=== PATIENT | male | born 1945 | race Caucasian/White ===

== ENCOUNTER 2020-09-05 13:51 | Inpatient (IN) ==
[2020-09-05] MEDS ORDERED: DILTIAZEM 25 MG/5 ML VIAL IV ONE (14:01)
--- NOTE | 2020-09-05 14:06 | Emergency Department Note ---
Arrhythmia/Palpitations HPI General Chief Complaint: Arrhythmia/Palpitations Stated Complaint: Shortness of breath Time Seen by Provider: 09/05/20 14:01 Source: patient, family and RN notes reviewed Mode of arrival: wheelchair Limitations: no limitations History of Present Illness HPI Narrative: Narrative: This patient presents with a tachycardia syndrome that he has been aware for the last 2 hours. He has a history of atrial flutter in the past. Also has had an ablation procedure in the past. He has very mild chest discomfort and slight shortness of breath associated with the tachycardia. No recent cough fever chills or other symptoms. MD Complaint: rapid heart beat Onset (ago): hour(s) Duration: constant Context: occurred during rest Arrhythmia History: other (Atrial flutter) Associated symptoms: Reports chest pain and shortness of breath Related Data Home Medications Medication Instructions Recorded Confirmed No Known Home Meds 09/05/20 09/05/20 Allergies Allergy/AdvReac Type Severity Reaction Status Date / Time Wjqtqhe-Pbu-Adh Reductase AdvReac Intermediate myalgia Verified 07/12/19 13:51 Inhibitor diltiazem AdvReac Unknown Rash Verified 07/12/19 13:51 cottonwood Pollen Allergy Unknown Unknown Uncoded 07/12/19 13:51 Review of Systems ROS ROS Narrative: Narrative: All systems ED: reviewed and negative except as stated. [facility] Narrative Patient History Narrative: Narrative: Medical/Surgical/Family History All Active Problems (Updated 09/05/20 @ 16:26 by Kody Ceballos MD) Congestive heart failure (Acute) Atrial flutter with rapid ventricular response (Chronic) Hypertension, essential, benign (Chronic) Hypertension in stage 3 chronic kidney disease due to type 2 diabetes mellitus (Chronic) CKD (chronic kidney disease) stage 3, GFR 30-59 ml/min (Chronic) Chest pressure (Acute) Type 2 diabetes mellitus with peripheral vascular disease (Chronic) Knee pain (Chronic) Elevated blood sugar (Chronic) Multiple lacunar infarcts (Chronic) Hypercholesterolemia (Chronic) DM w/o complication type II (Chronic) Sleepiness (Chronic) Back pain (Chronic) Arrhythmia (Chronic) Medical History (Updated 09/05/20 @ 16:26 by Kody Ceballos MD) Accident (Resolved) 1964* Patient broke bones in accident Arrhythmia (Chronic) 1964 Back pain (Chronic) CKD (chronic kidney disease) stage 3, GFR 30-59 ml/min (Chronic) 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) DM w/o complication type II (Chronic) 1998 Elevated blood sugar (Chronic) Fatigue (Resolved) 2012 Fracture (Resolved) 1965 Hypercholesterolemia (Chronic) Hypertension in stage 3 chronic kidney disease due to type 2 diabetes mellitus (Chronic) Indigestion (Resolved) Knee pain (Chronic) 2010 Multiple lacunar infarcts (Chronic) Muscle pain (Resolved) 2013 Shortness of breath (Resolved) 2013 Sleepiness (Chronic) daytime sleepiness Surgical History History of appendectomy (Resolved) 1953 History of left cataract extraction (Resolved 06/05/15) History of right cataract extraction (Resolved 06/26/15) Status post repair of ligament of ankle (Resolved) 1956 Broken ankle Family History Brother Diabetes mellitus Essential hypertension Father Diabetes mellitus Family history of malignant neoplasm Family history of arthritis Essential hypertension Acute myocardial infarction Mother Family history of malignant neoplasm Uncle Family history of malignant neoplasm Social History Smoking Status: Current every day smoker Alcohol Intake Frequency: a few times a week Substance Use: does not use Exam Narrative Narrative: Narrative: General Limitations: no limitations Head Head: Present atraumatic, normocephalic and normal inspection Eye Eye: Present normal appearance and EOMI; Absent scleral icterus and conjunctival injection ENT ENT: Present normal exam, normal oropharynx and mucous membranes moist Neck Neck: Present normal inspection and full ROM Chest Chest: Present normal inspection and symmetric chest wall rise Respiratory Respiratory: Present normal lung sounds bilaterally Cardiovascular Cardiovascular: Present regular rate and normal heart sounds Adbominal Abdominal: Present soft; Absent distention and tenderness Extremities Extremities: Present normal inspection and full ROM; Absent pedal edema and pretibial edema Neurological Neurological: Present alert Psychiatric Psychiatric: Present normal affect Skin Skin: Present warm (WNL) and dry; Absent diaphoresis Course Vital Signs Vital signs: Vital Signs Temperature 98.9 F 09/05/20 13:53 Pulse Rate 187 H 09/05/20 13:53 Respiratory Rate 18 09/05/20 13:53 Blood Pressure 111/88 09/05/20 13:53 Pulse Oximetry (%) 96 09/05/20 13:53 Temperature 98.9 F 10/22/20 13:53 Pulse Rate 106 H 09/05/20 16:22 Respiratory Rate 28 H 09/05/20 16:22 Blood Pressure 160/135 09/05/20 16:22 Pulse Oximetry (%) 93 09/05/20 16:22 MDM MDM Narrative Medical decision making narrative: Narrative: Patient was given initially 6 mg of adenosine and converted to sinus rhythm just for a few beats and then converted back into SVT. He then was given 12 mg of adenosine and converted to sinus rhythm for a slightly longer period but then converted back. He was started on diltiazem and his heart rate did come down to 113. I discussed case with Dr. Olmos and he will be admitted to the hospital for atrial flutter RVR with congestive heart failure Lab Data Lab results reviewed: Yes I reviewed the patient's lab results. Lab results narrative: BNP was over 6000. Result diagrams: 09/05/20 14:04 09/05/20 14:04 Labs: Lab Results 09/05/20 09/05/20 09/05/20 Range/Units 14:04 14:04 14:04 WBC 11.0 (4.5-11.0) K/mcL RBC 4.49 L (4.50-5.90) M/mcL Hgb 13.9 (13.5-16.5) g/dL Hct 41.5 (41.0-55.0) % MCV 92.4 (80.0-100.0) fL MCH 31.0 (26.0-34.0) pg MCHC 33.5 (31.0-36.0) g/dL RDW 13.2 (11.5-14.5) % Plt Count 337 (140-440) K/mcL MPV 10.0 (7.4-10.4) fL Neut % (Auto) 66.7 (38.0-78.0) % Lymph % (Auto) 20.7 (15.0-49.0) % [place] % (Auto) 9.4 (1.0-12.0) % Eos % (Auto) 2.3 (0.0-7.0) % Baso % (Auto) 0.9 (0.0-2.0) % Lymph # (Auto) 2.28 (1.50-4.80) K/mcL [place] # (Auto) 1.03 H (0.10-0.90) K/mcL Eos # (Auto) 0.25 (0.00-0.70) K/mcL Baso # (Auto) 0.10 (0.00-0.20) K/mcL Absolute Neutrophils 7.35 (1.80-8.00) K/mcL Sodium 137 (133-145) mmol/L Potassium 3.6 (3.3-5.1) mmol/L Chloride 101 (96-108) mmol/L Carbon Dioxide 20 L (22-30) mmol/L Anion Gap 16.0 (8.0-16.0) BUN 27 H (8-23) mg/dL Creatinine 1.9 H (0.7-1.2) mg/dL GFR Calculation 34 Glucose 250 H (70-105) mg/dL Calcium 9.7 (8.6-10.4) mg/dL Total Bilirubin 0.6 (0.1-1.0) mg/dL AST 13 (<40) U/L ALT 11 (<40) U/L Alkaline Phosphatase 61 (39-117) U/L Troponin T 0.02 (<0.03) ng/mL NT-Pro-B Natriuret Pep 6601.0 H (<450.0) pg/mL Total Protein 7.5 (5.9-8.4) gm/dL Albumin 3.9 (3.2-5.2) gm/dL Globulin 3.6 (2.2-3.7) gm/dL Albumin/Globulin Ratio 1.1 (1.0-2.3) Radiology Data Radiology results reviewed: Yes I reviewed the patient's radiology results. Radiology results narrative: Chest x-ray read as congestive heart failure with the radiologist EKG Data EKG #1: EKG attestation: Yes I reviewed and interpreted this EKG. and Yes There are no EKG findings of acute coronary syndrome Rhythm: SVT Discharge Plan Patient/Caregiver Discharge Instructions Pt seen by [facility]/PA only: No Clinical Impression: Atrial flutter with rapid ventricular response, Congestive heart failure Patient Disposition: Xfer As Inpt ([facility]) Follow up with: Evin Camejo MD [Primary Care Provider] - Prescriptions: No Action No Known Home Meds RF: 0
[2020-09-05] MEDS ORDERED: DEXTROSE 5% IN WATER 100 ML IV ONE (14:12)
[2020-09-05] MEDS ORDERED: DILTIAZEM 125 MG in DEXTROSE 5% IN WATER 100 ML IV SCH (14:15)
[2020-09-05] MEDS ORDERED: ADENOSINE 3 MG/ML VIAL IV ONE ×2 (14:17→14:22)
--- NOTE | 2020-09-05 14:42 | XRay Report ---
INDICATION: SVT TECHNIQUE: AP portable upright chest x-ray COMPARISON: None FINDINGS: Lungs:Lungs are abnormal consistent with interstitial pulmonary edema. There are septal lines bilaterally. No parenchymal consolidation or mass Heart, vascular:Moderate cardiomegaly. Pulmonary vascularity is prominent. Appearance is consistent with congestive heart failure Mediastinum, sixto:No mediastinal widening. No hilar mass Pleura:Left pleural effusion is possible but not definite. Follow-up PA and lateral chest x-rays recommended Skeletal:Negative. IMPRESSION: Findings consistent with congestive heart failure Interpreted and Authenticated by: Joseph Lazaro 09/05/20
[2020-09-05 14:48] LABS: Basophils % (Auto) 0.9 % (0.0-2.0); Eosinophils # (Auto) 0.25 K/mcL (0.00-0.70); Eosinophils % (Auto) 2.3 % (0.0-7.0); Hematocrit 41.5 % (41.0-55.0); Hemoglobin 13.9 g/dL (13.5-16.5); Lymphocytes # (Auto) 2.28 K/mcL (1.50-4.80); Lymphocytes % (Auto) 20.7 % (15.0-49.0); Mean Cell Volume 92.4 fL (80.0-100.0); Mean Corpuscular HGB Conc 33.5 g/dL (31.0-36.0); Monocytes # (Auto) 1.03 K/mcL (0.10-0.90); Monocytes % (Auto) 9.4 % (1.0-12.0); Neutrophils % (Auto) 66.7 % (38.0-78.0); Platelet Count 337 K/mcL (140-440); RBC 4.49 M/mcL (4.50-5.90); Red Cell Distribution Width 13.2 % (11.5-14.5)
[2020-09-05 15:37] LABS: ALT/SGPT 11 U/L (<40); AST/SGOT 13 U/L (<40); Albumin 3.9 gm/dL (3.2-5.2); Albumin/Globulin Ratio 1.1 (1.0-2.3); Alkaline Phosphatase 61 U/L (39-117); Bilirubin,Total 0.6 mg/dL (0.1-1.0); Blood Urea Nitrogen 27 mg/dL (8-23); Calcium 9.7 mg/dL (8.6-10.4); Carbon Dioxide 20 mmol/L (22-30); Chloride 101 mmol/L (96-108); Globulin 3.6 gm/dL (2.2-3.7); Glomerular Filtration Rate 34; Glucose 250 mg/dL (70-105)
[2020-09-05] MEDS ORDERED: FUROSEMIDE 40 MG/4 ML VIAL IV ONE (15:48)
[2020-09-05] MEDS ORDERED: cefTRIAXone 1 GM VIAL IV ONE (16:22)
[2020-09-05 16:27] LABS: Appearance,Urine CLEAR (Clear); Bilirubin,Urine Negative (Negative); Color,Urine STRAW; Culture Indicated,Urine No; Glucose,Urine (UA) 50 mg/dL (Negative); Ketones,Urine Negative (Negative); Leukocyte Esterase,Urine Negative /ug (Negative); Mucus,Urine FEW /hpf; Nitrate,Urine Negative (Negative); Protein,Urine 30 mg/dL (Negative); Specific Gravity,Urine 1.012 (1.000-1.035); Urine Blood Negative (Negative); Urine RBC 0 /hpf (0-1); Urine Squamous Epithelial Cell 0 /hpf (0-4); Urine WBC < 1 /hpf (0-4); Urobilinogen,Urine Negative
--- NOTE | 2020-09-05 18:14 | Internal Med History&Physical ---
HPI History of Present Illness Patient information: Note initiated : 09/05/20 at 6:14 pm Service Date, if different from initiated Date: [] Patient: Porfirio Flores a 74 y/o M admitted on for Shortness of breath. Chief Complaint: Progressive shortness of breath History of present illness: Mr. Flores is a 74 year old M who lives with his and carries a history of [id number]-legf smoking, prior atrial flutter/ablation who presents to the ER with 3 hours onset of worsening shortness of breath since this afternoon. Patient was in baseline state of health until last evening however later in the evening he did not really feel well and felt fatigued. This morning he noticed increasing dyspnea on exertion which progressed to dyspnea at rest later in the afternoon. He noted associated chest fluttering/malaise but denied lightheadedness dizziness, vertigo, vision changes or unilateral weakness. He further denies diaphoresis or chest pressure. With worsening symptoms he presents to the ER. Initial work-up was consistent with a flutter with heart rate in 180s. Chest imaging consistent with congestive heart failure. Patient was attempted on adenosine 2 doses without response and subsequently started on diltiazem drip/diuretics. Cardiology was consulted and advised admission for rate control management. Subsequently hospitalist service was consulted. At the time of my evaluation patient is accompanied with his daughter. He was able to answer most questions. He feels a lot better. Heart rate improved around 100. Endorses history as above. Denies recent respiratory events including changes in medications/NSAID intake. He further denies weight loss/tremors/heat intolerance. He denies [id number]-lat-[id number] cough medications or decongestants. Review of systems 10 point review system was performed and is negative except for ones discussed above PFSH PFSH All Active Problems (Updated 09/05/20 @ 16:26 by Kody Ceballos MD) Congestive heart failure (Acute) Atrial flutter with rapid ventricular response (Chronic) Hypertension, essential, benign (Chronic) Hypertension in stage 3 chronic kidney disease due to type 2 diabetes mellitus (Chronic) CKD (chronic kidney disease) stage 3, GFR 30-59 ml/min (Chronic) Chest pressure (Acute) Type 2 diabetes mellitus with peripheral vascular disease (Chronic) Knee pain (Chronic) Elevated blood sugar (Chronic) Multiple lacunar infarcts (Chronic) Hypercholesterolemia (Chronic) DM w/o complication type II (Chronic) Sleepiness (Chronic) Back pain (Chronic) Arrhythmia (Chronic) Medical History (Updated 09/05/20 @ 16:26 by Kody Ceballos MD) Accident (Resolved) 1964* Patient broke bones in accident Arrhythmia (Chronic) 1964 Back pain (Chronic) CKD (chronic kidney disease) stage 3, GFR 30-59 ml/min (Chronic) 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) DM w/o complication type II (Chronic) 1998 Elevated blood sugar (Chronic) Fatigue (Resolved) 2012 Fracture (Resolved) 1964 Hypercholesterolemia (Chronic) Hypertension in stage 3 chronic kidney disease due to type 2 diabetes mellitus (Chronic) Indigestion (Resolved) Knee pain (Chronic) 2009 Multiple lacunar infarcts (Chronic) Muscle pain (Resolved) 2012 Shortness of breath (Resolved) 2012 Sleepiness (Chronic) daytime sleepiness Surgical History History of appendectomy (Resolved) 1953 History of left cataract extraction (Resolved 06/05/15) History of right cataract extraction (Resolved 06/26/15) Status post repair of ligament of ankle (Resolved) 1956 Broken ankle Family History Brother Diabetes mellitus Essential hypertension Father Diabetes mellitus Family history of malignant neoplasm Family history of arthritis Essential hypertension Acute myocardial infarction Mother Family history of malignant neoplasm Uncle Family history of malignant neoplasm Social History (Updated 07/12/19 @ 14:01 by Spike Cagle MD) marital status: smoking status: Current every day smoker alcohol intake frequency: a few times a week substance use type: does not use MEDS/ALLERGIES Home Medications and Allergies Home Medications Medication Instructions Recorded Confirmed Type No Known Home Meds 09/05/20 09/05/20 History Allergies Allergy/AdvReac Type Severity Reaction Status Date / Time Tqdrius-Cly-Fdv Reductase AdvReac Intermediate myalgia Verified 07/12/19 13:51 Inhibitor diltiazem AdvReac Unknown Rash Verified 07/12/19 13:51 [place]wood Pollen Allergy Unknown Unknown Uncoded 07/12/19 13:51 EXAM Constitutional Vitals: Temp Pulse Resp BP Pulse Ox 98.9 F 94 H 29 H 163/102 95 09/05/20 13:53 09/05/20 17:46 09/05/20 18:00 09/05/20 18:00 09/05/20 17:46 Alert but anxious Head normocephalic Oral cavity moist No ear nose discharge Eye movement symmetrical Neck supple no lymphadenopathy S1-S2 irregular tachycardia Minimally labored breathing Nondistended nontender abdomen Lower extremity no cyanosis clubbing or joint swelling Skin no suspicious lesion Psych no hallucinations Neuro normal higher function DATA Data Completed and Pending Labs: Labs from last 24 hours 09/05/20 09/05/20 09/05/20 15:36 14:04 14:04 WBC RBC Hgb Hct MCV MCH MCHC RDW Plt Count MPV Neut % (Auto) Lymph % (Auto) [place] % (Auto) Eos % (Auto) Baso % (Auto) Lymph # (Auto) [place] # (Auto) Eos # (Auto) Baso # (Auto) Absolute Neutrophils Sodium 137 Potassium 3.6 Chloride 101 Carbon Dioxide 20 L Anion Gap 16.0 BUN 27 H Creatinine 1.9 H GFR Calculation 34 Glucose 250 H Calcium 9.7 Total Bilirubin 0.6 AST 13 ALT 11 Alkaline Phosphatase 61 Troponin T 0.02 NT-Pro-B Natriuret Pep 6601.0 H Total Protein 7.5 Albumin 3.9 Globulin 3.6 Albumin/Globulin Ratio 1.1 Urine Color Straw Urine Appearance Clear Urine pH 7.0 Ur Specific [place] 1.012 Urine Protein 30 A Urine Glucose (UA) 50 A Urine Ketones Negative Urine Occult Blood Negative Urine Nitrate Negative Urine Bilirubin Negative Urine Urobilinogen Negative Ur Leukocyte Esterase Negative Urine RBC 0 Urine WBC < 1 Ur Squamous Epith Cells 0 Urine Bacteria None Urine Mucus Few A Ur Culture Indicated? No 09/05/20 14:04 WBC 11.0 RBC 4.49 L Hgb 13.9 Hct 41.5 MCV 92.4 MCH 31.0 MCHC 33.5 RDW 13.2 Plt Count 337 MPV 10.0 Neut % (Auto) 66.7 Lymph % (Auto) 20.7 [place] % (Auto) 9.4 Eos % (Auto) 2.3 Baso % (Auto) 0.9 Lymph # (Auto) 2.28 [place] # (Auto) 1.03 H Eos # (Auto) 0.25 Baso # (Auto) 0.10 Absolute Neutrophils 7.35 Sodium Potassium Chloride Carbon Dioxide Anion Gap BUN Creatinine GFR Calculation Glucose Calcium Total Bilirubin AST ALT Alkaline Phosphatase Troponin T NT-Pro-B Natriuret Pep Total Protein Albumin Globulin Albumin/Globulin Ratio Urine Color Urine Appearance Urine pH Ur Specific [place] Urine Protein Urine Glucose (UA) Urine Ketones Urine Occult Blood Urine Nitrate Urine Bilirubin Urine Urobilinogen Ur Leukocyte Esterase Urine RBC Urine WBC Ur Squamous Epith Cells Urine Bacteria Urine Mucus Ur Culture Indicated? A/P Narrative A/P Narrative: * A flutter with RVR-rate control measures, echocardiogram/diltiazem drip. PCU telemetry admission * Acute decompensated heart failure secondary to RVR/diastolic dysfunction. Diuresis/rate control measures/echocardiogram * History of tobacco dependence smokes over a pack. Nicotine patch. * Prophylaxis heparin Plan * Inpatient admission * Rate control measures * Aggressive diuresis * Tobacco cessation counseling * PT OT nutrition support Time Spent With Patient Time: Total time spent is greater than 50% in coordination of care (as documented) at patient's floor/unit and/or counseling patient: QUALITY Stroke Symptom Onset Unknown: No
[2020-09-05] MEDS ORDERED: POTASSIUM CHLORIDE 40 MEQ in DEXTROSE 5% IN WATER 500 ML IV PRN (18:47)
[2020-09-05] MEDS ORDERED: POLYETHYLENE GLYCOL 3350 17 GM PACKET PO PRN (18:47)
[2020-09-05] MEDS ORDERED: MAGNESIUM SULFATE 2 GM/50 ML BAG IV PRN (18:47)
[2020-09-05] MEDS ORDERED: BISACODYL 10 MG SUPP.RECT PR PRN (18:47)
[2020-09-05] MEDS ORDERED: ONDANSETRON 4 MG ODT TABLET SL PRN (18:47)
[2020-09-05] MEDS ORDERED: METOPROLOL TARTRATE 5 MG/5 ML VIAL IV PRN (18:47)
[2020-09-05] MEDS ORDERED: ONDANSETRON 4 MG/2 ML VIAL IV PRN (18:47)
[2020-09-05] MEDS ORDERED: ACETAMINOPHEN 650 MG/65 ML BOTTLE IV PRN (18:47)
[2020-09-05] MEDS ORDERED: POTASSIUM CHLORIDE 20 MEQ PACKET PO PRN (18:47)
[2020-09-05] MEDS ORDERED: ACETAMINOPHEN 325 MG TABLET PO PRN (18:47)
[2020-09-05] MEDS ORDERED: MELATONIN 3 MG TABLET PO PRN (18:47)
[2020-09-05] MEDS ORDERED: 0.9 % SODIUM CHLORIDE 250 ML IV SCH (19:15)
[2020-09-05 20:04] LABS: Basophils # (Auto) 0.06 K/mcL (0.00-0.20); Basophils % (Auto) 0.5 % (0.0-2.0); Eosinophils % (Auto) 0.8 % (0.0-7.0); Hematocrit 37.9 % (41.0-55.0); Hemoglobin 12.9 g/dL (13.5-16.5); Lymphocytes # (Auto) 1.64 K/mcL (1.50-4.80); Lymphocytes % (Auto) 13.8 % (15.0-49.0); Mean Cell Volume 91.5 fL (80.0-100.0); Mean Platelet Volume 9.9 fL (7.4-10.4); Monocytes # (Auto) 1.01 K/mcL (0.10-0.90); Monocytes % (Auto) 8.5 % (1.0-12.0); Neutrophils % (Auto) 76.4 % (38.0-78.0); Platelet Count 314 K/mcL (140-440); RBC 4.14 M/mcL (4.50-5.90); Red Cell Distribution Width 13.2 % (11.5-14.5); WBC 11.9 K/mcL (4.5-11.0)
[2020-09-05] MEDS: SENNOSIDES/DOCUSATE SODIUM 1 TAB TABLET PO SCH (21:32)
[2020-09-05] MEDS: HEPARIN 5,000 UNIT/ML VIAL SQ SCH (21:32)
[2020-09-05] MEDS: DOCUSATE SODIUM 100 MG CAPSULE PO SCH (21:32)
[2020-09-05] MEDS: 0.9 % SODIUM CHLORIDE 10 ML SYRINGE IV SCH (21:33)
[2020-09-06] MEDS ORDERED: DILTIAZEM 125 MG in DEXTROSE 5% IN WATER 100 ML IV SCH (02:15)
[2020-09-06] MEDS: 0.9 % SODIUM CHLORIDE 10 ML SYRINGE IV SCH ×5 (05:31→22:11)
[2020-09-06 06:59] LABS: Basophils # (Auto) 0.07 K/mcL (0.00-0.20); Basophils % (Auto) 0.8 % (0.0-2.0); Eosinophils # (Auto) 0.21 K/mcL (0.00-0.70); Eosinophils % (Auto) 2.3 % (0.0-7.0); Hematocrit 34.4 % (41.0-55.0); Hemoglobin 11.5 g/dL (13.5-16.5); Lymphocytes # (Auto) 1.81 K/mcL (1.50-4.80); Lymphocytes % (Auto) 19.6 % (15.0-49.0); Mean Corpuscular HGB Conc 33.4 g/dL (31.0-36.0); Mean Platelet Volume 9.9 fL (7.4-10.4); Monocytes # (Auto) 1.01 K/mcL (0.10-0.90); Neutrophils % (Auto) 66.3 % (38.0-78.0); Platelet Count 280 K/mcL (140-440); RBC 3.74 M/mcL (4.50-5.90); WBC 9.2 K/mcL (4.5-11.0)
[2020-09-06 07:58] LABS: ALT/SGPT 7 U/L (<40); AST/SGOT 11 U/L (<40); Albumin 3.4 gm/dL (3.2-5.2); Albumin/Globulin Ratio 1.1 (1.0-2.3); Alkaline Phosphatase 52 U/L (39-117); Bilirubin,Direct < 0.2 mg/dL (<0.3); Bilirubin,Total 0.6 mg/dL (0.1-1.0); Blood Urea Nitrogen 28 mg/dL (8-23); Calcium 8.9 mg/dL (8.6-10.4); Carbon Dioxide 22 mmol/L (22-30); Chloride 103 mmol/L (96-108); Globulin 3.2 gm/dL (2.2-3.7); Glomerular Filtration Rate 32; Glucose 143 mg/dL (70-105); Lactate Dehydrogenase 183 U/L (135-225); Phosphorous 3.2 mg/dL (2.5-4.5); Triglycerides 128 mg/dL (<150); Uric Acid 6.3 mg/dL (2.5-8.0)
[2020-09-06] MEDS: DOCUSATE SODIUM 100 MG CAPSULE PO SCH ×2 (08:26→21:17)
[2020-09-06] MEDS: FUROSEMIDE 40 MG/4 ML VIAL IV SCH ×2 (08:26→16:54)
[2020-09-06] MEDS: MULTIVIT,THER IRON,CA,FA & MIN 1 TABLET PO SCH (08:26)
[2020-09-06] MEDS: HEPARIN 5,000 UNIT/ML VIAL SQ SCH ×2 (08:26→21:17)
[2020-09-06] MEDS ORDERED: METOPROLOL SUCCINATE 25 MG TAB.XL.24H PO SCH (09:00)
[2020-09-06] MEDS ORDERED: LISINOPRIL 5 MG TABLET PO SCH (09:00)
[2020-09-06] MEDS ORDERED: DILTIAZEM 125 MG in DEXTROSE 5% IN WATER 100 ML IV PRN (09:15)
--- NOTE | 2020-09-06 09:53 | Internal Med Progress Note ---
SUBJECTIVE Subjective Patient information: Note initiated : 09/06/20 at 9:49 am Service Date, if different from initiated Date: [] Patient: Porfirio Flores a 74 y/o M admitted on 09/05/20 for Shortness of breath. Chief Complaint: Mr. Flores is a 74 year old M who lives with his and carries a history of 24-anln-klfy smoking, prior atrial flutter/ablation,, hypertension, CKD stage III who presents to the ER with 3 hours onset of worsening shortness of breath since this afternoon. Patient was in baseline state of health until last evening however later in the evening he did not really feel well and felt fatigued. This morning he noticed increasing dyspnea on exertion which progressed to dyspnea at rest later in the afternoon. He noted associated chest fluttering/malaise but denied lightheadedness dizziness, vertigo, vision changes or unilateral weakness. He further denies diaphoresis or chest pressure. With worsening symptoms he presents to the ER. Initial work-up was consistent with a flutter with heart rate in 180s. Chest imaging consistent with congestive heart failure. Patient was attempted on adenosine 2 doses without response and subsequently started on diltiazem drip/diuretics. Cardiology was consulted and advised admission for rate control management. Subsequently hospitalist service was consulted. At the time of my evaluation patient is accompanied with his daughter. He was able to answer most questions. He feels a lot better. Heart rate improved a round 100. Endorses history as above. Denies recent respiratory events including changes in medications/NSAID intake. He further denies weight loss/tremors/heat intolerance. He denies [id number]-[id number] cough medications or decongestants. 09/06-patient doing better. Heart rate now around mid 90s.On diltiazem drip, persistent elevation of blood pressure. Await echocardiogram. White count 9.2. Diuresing well. Improving shortness of breath and hypoxic respiratory failure. Creatinine at 2. Blood sugars at goal, ongoing physical therapy. Net -1200 cc fluid balance since admission Constitutional Vitals: Vital Signs Temp Pulse Resp BP Pulse Ox 98.1 F 84 93 H 177/88 95 09/06/20 08:01 09/06/20 01:03 09/06/20 08:01 09/06/20 08:01 09/06/20 01:03 Period Temp Pulse Resp BP Sys/[place] Pulse Ox Last 24 Hr 98.1 F-98.9 F 81-187 18-93 111-189/53-135 85-97 Intake and Output 09/05/20 09/06/20 09/06/20 21:59 05:59 13:59 Intake Total 75 13 Output Total 1150 200 Balance -1075 -187 Weight 93.44 kg Alert oriented Minimally labored breathing On 2 L oxygen Improved anxiety Lymphedema resolved Intake & Output: Intake & Output 09/05/20 09/06/20 09/06/20 21:59 05:59 13:59 Intake Total 75 13 Output Total 1150 200 Balance -1075 -187 Weight 93.44 kg Intake: IV 75 13 Cardizem 125 mg In Dextrose 5% 75 13 in Water 100 ml @ 5 MG/HR 5 mls /hr IV Q12H [facility] Rx#:[id number] Output: Void Amount 1150 200 Other: Urine Appearance Clear Clear Urine Color Straw Straw Urine Odor Normal Normal OBJ DATA Labs CBC & Chem 7: 09/06/20 05:08 09/06/20 05:08 Labs: Abnormal Lab Results 09/06/20 09/06/20 09/05/20 05:08 05:08 18:58 WBC 11.9 H RBC 3.74 L 4.14 L Hgb 11.5 L 12.9 L Hct 34.4 L 37.9 L Lymph % (Auto) 13.8 L [place] # (Auto) 1.01 H 1.01 H Absolute Neutrophils 9.10 H Carbon Dioxide BUN 28 H Creatinine 2.0 H Glucose 143 H NT-Pro-B Natriuret Pep Urine Protein Urine Glucose (UA) Urine Mucus 09/05/20 09/05/20 09/05/20 15:36 14:04 14:04 WBC RBC 4.49 L Hgb Hct Lymph % (Auto) [place] # (Auto) 1.03 H Absolute Neutrophils Carbon Dioxide 20 L BUN 27 H Creatinine 1.9 H Glucose 250 H NT-Pro-B Natriuret Pep 6601.0 H Urine Protein 30 A Urine Glucose (UA) 50 A Urine Mucus Few A Meds: Medications Acetaminophen (Tylenol) 650 mg PO Q4-6HP PRN; Protocol PRN Reason: Per Pain Protocol/Fever > 101 Bisacodyl (Dulcolax) 10 mg VA Q2-3DAYS PRN PRN Reason: Constipation Docusate Sodium (Colace) 100 mg PO BID [facility] Last Admin: 09/06/20 08:26 Dose: 100 mg Documented by: Furosemide (Lasix) 40 mg IV BIDD [facility] Last Admin: 09/06/20 08:26 Dose: 40 mg Documented by: Heparin Sodium (Porcine) (Heparin) 5,000 unit SQ Q12 [facility] Last Admin: 09/06/20 08:26 Dose: 5,000 unit Documented by: Potassium Chloride 40 meq/ (Dextrose) 520 mls @ 130 mls/hr IV UD PRN PRN Reason: K+ = or < 3.5 Acetaminophen (Ofirmev) 650 mg in 65 mls @ 130 mls/hr IV Q6HP PRN; Protocol PRN Reason: Per Pain Protocol/Fever > 101 Magnesium Sulfate (Magnesium Sulfate) 2 gm in 50 mls @ 50 mls/hr IV UD PRN PRN Reason: MG = or < 1.7 Sodium Chloride (Sodium Chloride 0.9%) 250 mls @ 10 mls/hr IV .Q24H [facility] Last Admin: 09/05/20 20:27 Dose: 15 mls/hr Documented by: Diltiazem HCl 125 mg/ Dextrose 125 mls @ 5 mls/hr IV Q12HP PRN; Protocol PRN Reason: Tachyarrhythmias Iron Carb/Multivit/[place]/Folic Acid (Multivitamin W/Minerals) 1 tab PO DAILY [facility] Last Admin: 09/06/20 08:26 Dose: 1 tab Documented by: Lisinopril (Zestril) 5 mg PO DAILY [facility] Last Admin: 09/06/20 08:30 Dose: 5 mg Documented by: Melatonin (Melatonin 3mg Tablet) 3 mg PO HSP PRN PRN Reason: Insomnia Metoprolol Succinate (Toprol Xl) 25 mg PO DAILY [facility] Last Admin: 09/06/20 08:30 Dose: 25 mg Documented by: Metoprolol Tartrate (Lopressor) 5 mg IV Q5M PRN PRN Reason: Heart Rate > 140 bpm Ondansetron HCl (Zofran Odt) 4 mg SL Q4-6HP PRN; Protocol PRN Reason: Nausea And Vomiting Ondansetron HCl (Zofran) 4 mg IV Q4-6HP PRN; Protocol PRN Reason: Nausea And Vomiting Polyethylene Glycol (Miralax) 17 gm PO DAILYP PRN PRN Reason: Constipation Potassium Chloride (Klor-Con) 40 meq PO DAILYP PRN PRN Reason: K+ < 3.5 Senna/Docusate Sodium (Senna Plus Tablet) 1 tab PO HS [facility] Last Admin: 09/05/20 21:32 Dose: 1 tab Documented by: Sodium Chloride (Saline Flush) 10 ml IV Q8 [facility] Last Admin: 09/06/20 05:31 Dose: 10 ml Documented by: A/P Narrative A/P Narrative: * A flutter with RVR-rate control measures, echocardiogram/diltiazem drip. PCU telemetry admission * Acute decompensated heart failure secondary to RVR/diastolic dysfunction/poorly controlled hypertension. Improved rate control on diltiazem, CHADS2 score 2 mandating anticoagulation , await echo to rule out valvular etiology. Patient follows up with heart clinic [place] and will require close follow-up with cardiology on discharge. * History of tobacco dependence smokes over a pack per day with 70 pack years history. Nicotine patch. * Chronic kidney disease stage IIIa-creatinine at baseline * Poorly controlled hypertension initiate ALPHONSO inhibitor/beta-juan f, improving blood pressures. * Prophylaxis heparin Plan * Continue rate control measures * Continue diuresis * PT OT nutrition support * Tobacco cessation counseling * PT OT nutrition support Time Spent With Patient Time: Total time spent is greater than 50% in coordination of care (as documented) at patient's floor/unit and/or counseling patient: QUALITY Stroke Symptom Onset Unknown: No VTE Deep Vein Thrombosis/Pulmonary Embolism Present on Admission: No
[2020-09-06] MEDS ORDERED: ADENOSINE 3 MG/ML VIAL IV ONE (11:34)
[2020-09-06] MEDS ORDERED: METOPROLOL SUCCINATE 25 MG TAB.XL.24H PO ONE (13:32)
--- NOTE | 2020-09-06 13:32 | Internal Med Progress Note ---
SUBJECTIVE Subjective Patient information: Note initiated : 09/06/20 at 1:25 pm Service Date, if different from initiated Date: [] Patient: Profirio Flores a 74 y/o M admitted on 09/05/20 for Shortness of breath. Chief Complaint: [] Interval history: History of present illness: Mr. Flores is a 74 year old M who lives with his and carries a history of 14-homc-cctp smoking, prior atrial flutter/ablation who presents to the ER with 3 hours onset of worsening shortness of breath since this afternoon. Patient was in baseline state of health until last evening however later in the evening he did not really feel well and felt fatigued. This morning he noticed increasing dyspnea on exertion which progressed to dyspnea at rest later in the afternoon. He noted associated chest fluttering/malaise but denied lightheadedness dizziness, vertigo, vision changes or unilateral weakness. He further denies diaphoresis or chest pressure. With worsening symptoms he presents to the ER. Initial work-up was consistent with a flutter with heart rate in 180s. Chest imaging consistent with congestive heart failure. Patient was attempted on adenosine 2 doses without response and subsequently started on diltiazem drip/diuretics. Cardiology was consulted and advised admission for rate control management. Subsequently hospitalist service was consulted. At the time of my evaluation patient is accompanied with his daughter. He was able to answer most questions. He feels a lot better. Heart rate improved around 100. Endorses history as above. Denies recent respiratory events including changes in medications/NSAID intake. He further denies weight loss/tremors/heat intolerance. He denies [id number] cough medications or decongestants. 09/07 Constitutional Vitals: Vital Signs Temp Pulse Resp BP Pulse Ox 97.8 F 82 15 168/92 97 09/06/20 12:01 09/06/20 12:01 09/06/20 12:01 09/06/20 12:01 09/06/20 12:01 Period Temp Pulse Resp BP Sys/[place] Pulse Ox Last 24 Hr 97.8 F-98.9 F 81-187 15-93 111-189/53-135 85-99 Intake and Output 09/05/20 09/06/20 09/06/20 21:59 05:59 13:59 Intake Total 75 13 Output Total 1150 200 850 Balance -1075 -187 -850 Weight 93.44 kg 93.44 kg Patient Weight 09/07/20 05:59 Weight 93.44 kg Intake & Output: Intake & Output 09/05/20 09/06/20 09/06/20 21:59 05:59 13:59 Intake Total 75 13 Output Total 1155 200 850 Balance -5435 -547 -850 Weight 93.44 kg 93.44 kg Intake: IV 75 13 Cardizem 125 mg In Dextrose 5% 75 13 in Water 100 ml @ 5 MG/HR 5 mls /hr IV Q12H [facility] Rx#:[id number] Output: Void Amount 1150 737 480 Other: Urine Appearance Clear Clear Clear Urine Color Straw Straw Bright Yellow Dark Yellow Urine Odor Normal Normal Normal Exam: General: Alert, Awake, No acute Distress Eyes/N/T: EOMI, Head/Neck: neck supple, CV: irreg irreg, No murmurs, Pulm: Clear b/l, no wheezing/rhonchi/rales Abd: soft, nontender, +BS x4 Ext: no clubbing/cyanosis/edema Neuro: Alert, no focal deficits, moves all extremities, Skin: warm/dry OBJ DATA Labs CBC & Chem 7: 09/06/20 05:08 09/06/20 05:08 Labs: Abnormal Lab Results 09/06/20 09/06/20 09/05/20 05:08 05:08 18:58 WBC 11.9 H RBC 3.74 L 4.14 L Hgb 11.5 L 12.9 L Hct 34.4 L 37.9 L Lymph % (Auto) 13.8 L [place] # (Auto) 1.01 H 1.01 H Absolute Neutrophils 9.10 H Carbon Dioxide BUN 28 H Creatinine 2.0 H Glucose 143 H NT-Pro-B Natriuret Pep Urine Protein Urine Glucose (UA) Urine Mucus 09/05/20 09/05/20 09/05/20 15:36 14:04 14:04 WBC RBC 4.49 L Hgb Hct Lymph % (Auto) [place] # (Auto) 1.03 H Absolute Neutrophils Carbon Dioxide 20 L BUN 27 H Creatinine 1.9 H Glucose 250 H NT-Pro-B Natriuret Pep 6601.0 H Urine Protein 30 A Urine Glucose (UA) 50 A Urine Mucus Few A Meds: Medications Acetaminophen (Tylenol) 650 mg PO Q4-6HP PRN; Protocol PRN Reason: Per Pain Protocol/Fever > 101 Bisacodyl (Dulcolax) 10 mg [place] Q2-3DAYS PRN PRN Reason: Constipation Docusate Sodium (Colace) 100 mg PO BID [facility] Last Admin: 09/06/20 08:26 Dose: 100 mg Documented by: Furosemide (Lasix) 40 mg IV BIDD [facility] Last Admin: 09/06/20 08:26 Dose: 40 mg Documented by: Heparin Sodium (Porcine) (Heparin) 5,000 unit SQ Q12 [facility] Last Admin: 09/06/20 08:26 Dose: 5,000 unit Documented by: Potassium Chloride 40 meq/ (Dextrose) 520 mls @ 130 mls/hr IV UD PRN PRN Reason: K+ = or < 3.5 Acetaminophen (Ofirmev) 650 mg in 65 mls @ 130 mls/hr IV Q6HP PRN; Protocol PRN Reason: Per Pain Protocol/Fever > 101 Magnesium Sulfate (Magnesium Sulfate) 2 gm in 50 mls @ 50 mls/hr IV UD PRN PRN Reason: MG = or < 1.7 Sodium Chloride (Sodium Chloride 0.9%) 250 mls @ 10 mls/hr IV .Q24H [facility] Last Admin: 09/05/20 20:27 Dose: 15 mls/hr Documented by: Diltiazem HCl 125 mg/ Dextrose 125 mls @ 5 mls/hr IV Q12HP PRN; Protocol PRN Reason: Tachyarrhythmias Iron Carb/Multivit/[place]/Folic Acid (Multivitamin W/Minerals) 1 tab PO DAILY [facility] Last Admin: 09/06/20 08:26 Dose: 1 tab Documented by: Lisinopril (Zestril) 5 mg PO DAILY [facility] Last Admin: 09/06/20 08:30 Dose: 5 mg Documented by: Melatonin (Melatonin 3mg Tablet) 3 mg PO HSP PRN PRN Reason: Insomnia Metoprolol Succinate (Toprol Xl) 25 mg PO DAILY [facility] Last Admin: 09/06/20 08:30 Dose: 25 mg Documented by: Metoprolol Tartrate (Lopressor) 5 mg IV Q5M PRN PRN Reason: Heart Rate > 140 bpm Ondansetron HCl (Zofran Odt) 4 mg SL Q4-6HP PRN; Protocol PRN Reason: Nausea And Vomiting Ondansetron HCl (Zofran) 4 mg IV Q4-6HP PRN; Protocol PRN Reason: Nausea And Vomiting Polyethylene Glycol (Miralax) 17 gm PO DAILYP PRN PRN Reason: Constipation Potassium Chloride (Klor-Con) 40 meq PO DAILYP PRN PRN Reason: K+ < 3.5 Senna/Docusate Sodium (Senna Plus Tablet) 1 tab PO HS [facility] Last Admin: 09/05/20 21:32 Dose: 1 tab Documented by: Sodium Chloride (Saline Flush) 10 ml IV Q8 [facility] Last Admin: 09/06/20 05:31 Dose: 10 ml Documented by: A/P Narrative A/P Narrative: A: *Aflutter w/RVR: - *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 Nicotine patch. -CKD IIIb: -HTN, Poorly controlled Plan: -cont BB (titrate) -IV lasix -discuss anticoagulation -Smoking cessation counseling tobacco cessation counseling -cont BB/ACEI -PT OT nutrition support -ppx: heparin Time Spent With Patient Time: Total time spent is greater than 50% in coordination of care (as documented) at patient's floor/unit and/or counseling patient: QUALITY Stroke Symptom Onset Unknown: No VTE Deep Vein Thrombosis/Pulmonary Embolism Present on Admission: No
[2020-09-06] MEDS: NICOTINE 21 MG PATCH TOPICAL SCH (16:57)
[2020-09-06] MEDS: SENNOSIDES/DOCUSATE SODIUM 1 TAB TABLET PO SCH (21:17)
[2020-09-07] MEDS: 0.9 % SODIUM CHLORIDE 10 ML SYRINGE IV SCH ×3 (05:37→21:25)
[2020-09-07 06:11] LABS: ALT/SGPT 9 U/L (<40); AST/SGOT 16 U/L (<40); Albumin/Globulin Ratio 0.9 (1.0-2.3); Alkaline Phosphatase 46 U/L (39-117); Bilirubin,Direct < 0.2 mg/dL (<0.3); Bilirubin,Total 0.7 mg/dL (0.1-1.0); Blood Urea Nitrogen 33 mg/dL (8-23); Calcium 8.8 mg/dL (8.6-10.4); Carbon Dioxide 18 mmol/L (22-30); Chloride 105 mmol/L (96-108); Globulin 3.5 gm/dL (2.2-3.7); Glomerular Filtration Rate 25; Glucose 145 mg/dL (70-105); Lactate Dehydrogenase 239 U/L (135-225); Phosphorous 3.4 mg/dL (2.5-4.5); Triglycerides 123 mg/dL (<150); Uric Acid 7.1 mg/dL (2.5-8.0)
--- NOTE | 2020-09-07 08:18 | Internal Med Progress Note ---
SUBJECTIVE Subjective Patient information: Note initiated : 09/07/20 at 8:13 am Service Date, if different from initiated Date: [] Patient: Porfirio Flores a 74 y/o M admitted on 09/05/20 for Shortness of breath. Chief Complaint: [] Interval history: History of present illness: Mr. Flores is a 74 year old M who lives with his and carries a history of 85-eaou-jfxk smoking, prior atrial flutter/ablation who presents to the ER with 3 hours onset of worsening shortness of breath since this afternoon. Patient was in baseline state of health until last evening however later in the evening he did not really feel well and felt fatigued. This morning he noticed increasing dyspnea on exertion which progressed to dyspnea at rest later in the afternoon. He noted associated chest fluttering/malaise but denied lightheadedness dizziness, vertigo, vision changes or unilateral weakness. He further denies diaphoresis or chest pressure. With worsening symptoms he presents to the ER. Initial work-up was consistent with a flutter with heart rate in 180s. Chest imaging consistent with congestive heart failure. Patient was attempted on adenosine 2 doses without response and subsequently started on diltiazem drip/diuretics. Cardiology was consulted and advised admission for rate control management. Subsequently hospitalist service was consulted. At the time of my evaluation patient is accompanied with his daughter. He was able to answer most questions. He feels a lot better. Heart rate improved around 100. Endorses history as above. Denies recent respiratory events including changes in medications/NSAID intake. He further denies weight loss/tremors/heat intolerance. He denies nmon-lvi-pfcgwpi cough medications or decongestants. 09/06-patient doing better. Heart rate now around mid 90s.On diltiazem drip, persistent elevation of blood pressure. Await echocardiogram. White count 9.2. Diuresing well. Improving shortness of breath and hypoxic respiratory failure. Creatinine at 2. Blood sugars at goal, ongoing physical therapy. Net -1200 cc fluid balance since admission 09/07 Does have dyspnea on exertion but is ambulating on room air. Heart rate is regular. initial rhythm appeared to be SVT and subsequent to be sinus tach. HR has been regular. Echo with poor EF. Good sats on room air. Follow-up chest x-ray much improved. Review of Systems: denies headache/fever/chills/nausea/vomiting/chest or abdominal pain/cough//diarrhea. Otherwise see above. Constitutional Vitals: Vital Signs Temp Pulse Resp BP Pulse Ox 98.2 F 80 12 144/76 91 09/06/20 16:12 09/07/20 04:18 09/07/20 04:18 09/07/20 04:08 09/07/20 04:18 Period Temp Pulse Resp BP Sys/[place] Pulse Ox Last 24 Hr 97.8 F-98.2 F 80-97 12-27 128-168/64-97 91-100 Intake and Output 09/06/20 09/07/20 09/07/20 21:59 05:59 13:59 Intake Total 360 Output Total 1250 100 Balance -890 -100 Weight 93 kg Intake & Output: Intake & Output 09/06/20 09/07/20 09/07/20 21:59 05:59 13:59 Intake Total 360 Output Total 1250 100 Balance -890 -100 Weight 93 kg Intake: Oral 360 Output: Void Amount 1250 100 Other: Urine Appearance Clear Clear Urine Color Straw Straw Urine Odor Normal Normal # Voids 1 Exam: General: Alert, Awake, No acute Distress Eyes/N/T: EOMI, Head/Neck: neck supple, CV: Regular, No murmurs, Pulm: Clear b/l, no wheezing/rhonchi/rales Abd: soft, nontender, +BS x4 Ext: no clubbing/cyanosis/edema Neuro: Alert, no focal deficits, moves all extremities, Skin: warm/dry OBJ DATA Labs CBC & Chem 7: 09/06/20 05:08 09/07/20 04:20 Labs: Abnormal Lab Results 09/07/20 09/06/20 09/06/20 04:20 05:08 05:08 WBC RBC 3.74 L Hgb 11.5 L Hct 34.4 L Lymph % (Auto) [place] # (Auto) 1.01 H Absolute Neutrophils Carbon Dioxide 18 L BUN 33 H 28 H Creatinine 2.4 H 2.0 H Glucose 145 H 143 H Lactate Dehydrogenase 239 H NT-Pro-B Natriuret Pep Albumin 3.0 L Albumin/Globulin Ratio 0.9 L Urine Protein Urine Glucose (UA) Urine Mucus 09/05/20 09/05/20 09/05/20 18:58 15:36 14:04 WBC 11.9 H RBC 4.14 L Hgb 12.9 L Hct 37.9 L Lymph % (Auto) 13.8 L [place] # (Auto) 1.01 H Absolute Neutrophils 9.10 H Carbon Dioxide 20 L BUN 27 H Creatinine 1.9 H Glucose 250 H Lactate Dehydrogenase NT-Pro-B Natriuret Pep 6601.0 H Albumin Albumin/Globulin Ratio Urine Protein 30 A Urine Glucose (UA) 50 A Urine Mucus Few A 09/05/20 14:04 WBC RBC 4.49 L Hgb Hct Lymph % (Auto) [place] # (Auto) 1.03 H Absolute Neutrophils Carbon Dioxide BUN Creatinine Glucose Lactate Dehydrogenase NT-Pro-B Natriuret Pep Albumin Albumin/Globulin Ratio Urine Protein Urine Glucose (UA) Urine Mucus Meds: Medications Acetaminophen (Tylenol) 650 mg PO Q4-6HP PRN; Protocol PRN Reason: Per Pain Protocol/Fever > 101 Bisacodyl (Dulcolax) 10 mg [place] Q2-3DAYS PRN PRN Reason: Constipation Docusate Sodium (Colace) 100 mg PO BID [facility] Last Admin: 09/06/20 21:17 Dose: Not Given Documented by: Furosemide (Lasix) 40 mg IV BIDD [facility] Last Admin: 09/06/20 16:54 Dose: 40 mg Documented by: Heparin Sodium (Porcine) (Heparin) 5,000 unit SQ Q12 [facility] Last Admin: 09/06/20 21:17 Dose: 5,000 unit Documented by: Potassium Chloride 40 meq/ (Dextrose) 520 mls @ 130 mls/hr IV UD PRN PRN Reason: K+ = or < 3.5 Acetaminophen (Ofirmev) 650 mg in 65 mls @ 130 mls/hr IV Q6HP PRN; Protocol PRN Reason: Per Pain Protocol/Fever > 101 Magnesium Sulfate (Magnesium Sulfate) 2 gm in 50 mls @ 50 mls/hr IV UD PRN PRN Reason: MG = or < 1.7 Iron Carb/Multivit/[place]/Folic Acid (Multivitamin W/Minerals) 1 tab PO DAILY [facility] Last Admin: 09/06/20 08:26 Dose: 1 tab Documented by: Lisinopril (Zestril) 5 mg PO DAILY [facility] Last Admin: 09/06/20 08:30 Dose: 5 mg Documented by: Melatonin (Melatonin 3mg Tablet) 3 mg PO HSP PRN PRN Reason: Insomnia Last Admin: 09/06/20 21:17 Dose: 3 mg Documented by: Metoprolol Succinate (Toprol Xl) 50 mg PO DAILY [facility] Metoprolol Tartrate (Lopressor) 5 mg IV Q5M PRN PRN Reason: Heart Rate > 140 bpm Nicotine (Nicoderm) 21 mg TOPICAL DAILY@1000 [facility] Last Admin: 09/06/20 16:57 Dose: 21 mg Documented by: Ondansetron HCl (Zofran Odt) 4 mg SL Q4-6HP PRN; Protocol PRN Reason: Nausea And Vomiting Ondansetron HCl (Zofran) 4 mg IV Q4-6HP PRN; Protocol PRN Reason: Nausea And Vomiting Polyethylene Glycol (Miralax) 17 gm PO DAILYP PRN PRN Reason: Constipation Potassium Chloride (Klor-Con) 40 meq PO DAILYP PRN PRN Reason: K+ < 3.5 Senna/Docusate Sodium (Senna Plus Tablet) 1 tab PO HS [facility] Last Admin: 09/06/20 21:17 Dose: Not Given Documented by: Sodium Chloride (Saline Flush) 10 ml IV Q8 [facility] Last Admin: 09/07/20 05:37 Dose: 10 ml Documented by: A/P Narrative 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: 2/2 above -improved -not on any cardiac meds per pt, nurse to clarify *History of tobacco dependence: *CKD IIIb (baseline ~2): *HTN: Poorly controlled *h/o CVA's: *likely vascular dementia: had some confusion at night Plan: -cont BB (titrate), hold ACEI for now & monitor renal fxn -hold lasix today -PT OT nutrition support -Nicotine patch -Smoking cessation counseling tobacco cessation counseling -f/u with cardiology outpt -ppx: heparin Time Spent With Patient Time: Total time spent is greater than 50% in coordination of care (as documented) at patient's floor/unit and/or counseling patient: QUALITY Stroke Symptom Onset Unknown: No VTE Deep Vein Thrombosis/Pulmonary Embolism Present on Admission: No
[2020-09-07] MEDS ORDERED: LABETALOL 5 MG/ML ML IV PRN (08:19)
--- NOTE | 2020-09-07 08:21 | XRay Report ---
INDICATION: Interval Change. Congestive heart failure TECHNIQUE: AP portable upright chest x-ray COMPARISON: Previous chest x-rays dated 09/05/2020, 12/21/2017, 12/10/2015 FINDINGS: Lungs:There is density in the left retrocardiac region which may represent left lower lobe volume loss or focal infiltrate. No other focal pulmonary parenchymal abnormalities. Lungs appear improved. There is decreased interstitial pulmonary edema. Heart, vascular:There is cardiomegaly, unchanged. Vascularity remains mildly prominent consistent with pulmonary congestion. Septal lines are decreased consistent with improved interstitial pulmonary edema Mediastinum, sixto:No mediastinal widening. No hilar mass Pleura:No pleural fluid. No pleural-based mass or calcification Skeletal:Negative. IMPRESSION: Improved chest x-ray consistent with decreased interstitial pulmonary edema Interpreted and Authenticated by: Joseph Lazaro 09/07/20
[2020-09-07] MEDS: FUROSEMIDE 40 MG/4 ML VIAL IV SCH (08:33)
[2020-09-07] MEDS: MULTIVIT,THER IRON,CA,FA & MIN 1 TABLET PO SCH (08:34)
[2020-09-07] MEDS: HEPARIN 5,000 UNIT/ML VIAL SQ SCH ×2 (08:34→21:24)
[2020-09-07] MEDS: DOCUSATE SODIUM 100 MG CAPSULE PO SCH ×2 (08:34→21:11)
[2020-09-07] MEDS: METOPROLOL SUCCINATE 25 MG TAB.XL.24H PO SCH (08:34)
[2020-09-07] MEDS: NICOTINE 21 MG PATCH TOPICAL SCH (09:59)
--- NOTE | 2020-09-07 12:07 | Discharge Summary ---
Discharge Provider Provider Patient information: Note initiated : 09/07/20 at 12:06 pm Service Date, if different from initiated Date: [] Patient: Porfirio Flores 74 y/o M admitted on 09/05/20 for Shortness of breath. Chief Complaint: [] Date of admission: 09/05/20 18:38 Discharge date: 09/08/20 Primary care physician: Evin Camejo Consults: 09/05/20 16:19 Consult to Physician [CONS] Stat Comment: Consulting Provider: Bib Perez Reason For Exam: Physician to Consult Discharge Meds Discharge Medications Home Medications aspirin 81 mg PO QDAY #30 tab 09/07/20 [Rx Last Taken Unknown] atorvastatin [Lipitor] 10 mg PO QHS #30 tab 09/07/20 [Rx Last Taken Unknown] furosemide [Lasix] 20 mg PO QDAY #30 tab 09/07/20 [Rx Last Taken Unknown] lisinopril 5 mg PO QDAY #30 tab 09/07/20 [Rx Last Taken Unknown] metoprolol succinate 50 mg PO DAILY #30 tab 09/07/20 [Rx Last Taken Unknown] COURSE Hospital Course Hospital course: History of present illness: Mr. Flores is a 74 year old M who lives with his and carries a history of 72-sqcm-defp smoking, prior atrial flutter/ablation who presents to the ER with 3 hours onset of worsening shortness of breath since this afternoon. Patient was in baseline state of health until last evening however later in the evening he did not really feel well and felt fatigued. This morning he noticed increasing dyspnea on exertion which progressed to dyspnea at rest later in the afternoon. He noted associated chest fluttering/malaise but denied lightheadedness dizziness, vertigo, vision changes or unilateral weakness. He further denies diaphoresis or chest pressure. With worsening symptoms he presents to the ER. Initial work-up was consistent with a flutter with heart rate in 180s. Chest imaging consistent with congestive heart failure. Patient was attempted on adenosine 2 doses without response and subsequently started on diltiazem drip/diuretics. Cardiology was consulted and advised admission for rate control management. Subsequently hospitalist service was consulted. At the time of my evaluation patient is accompanied with his daughter. He was able to answer most questions. He feels a lot better. Heart rate improved around 100. Endorses history as above. Denies recent respiratory events including changes in medications/NSAID intake. He further denies weight loss/tremors/heat intolerance. He denies cmoi-xpd-ijprnyg cough medications or decongestants. 09/06-patient doing better. Heart rate now around mid 90s.On diltiazem drip, persistent elevation of blood pressure. Await echocardiogram. White count 9.2. Diuresing well. Improving shortness of breath and hypoxic respiratory failure. Creatinine at 2. Blood sugars at goal, ongoing physical therapy. Net -1200 cc fluid balance since admission 09/07 Does have dyspnea on exertion but is ambulating on room air. Heart rate is regular. initial rhythm appeared to be SVT and subsequent to be sinus tach. HR has been regular. Echo with poor EF. Good sats on room air. Follow-up chest x-ray much improved. 09/08 Doing well. No overnight event or new complaints. Stable for discharge. Explained he needs close follow-up with cardiology. 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: 2/2 above -not on any cardiac meds at home *History of tobacco dependence: *CKD IIIb (baseline ~2): *HTN: Poorly controlled *h/o CVA's: *likely vascular dementia: had some confusion at night Discharge diagnosis: Acute on chronic heart failure SVT Secondary discharge diagnosis: Chronic kidney disease tobacco abuse hypertension history of strokes with vascular dementia Time Spent with Patient Time attestation: Total time spent providing and/or coordinating discharge services: Time spent: Greater than 30 minutes EXAM Constitutional Vitals: Temp Pulse Resp BP Pulse Ox 97.4 F 71 25 H 130/81 99 09/07/20 08:01 09/07/20 10:49 09/07/20 08:01 09/07/20 10:01 09/07/20 10:49 Discharge Data Data Completed and Pending Labs on day of discharge: Labs from last 24 hours 09/07/20 04:20 Sodium 136 Potassium 4.1 Chloride 105 Carbon Dioxide 18 L Anion Gap 13.0 BUN 33 H Creatinine 2.4 H GFR Calculation 25 Glucose 145 H Uric Acid 7.1 Calcium 8.8 Phosphorus 3.4 Magnesium 2.4 Total Bilirubin 0.7 Direct Bilirubin < 0.2 GGT 11 AST 16 ALT 9 Alkaline Phosphatase 46 Lactate Dehydrogenase 239 H Total Protein 6.5 Albumin 3.0 L Globulin 3.5 Albumin/Globulin Ratio 0.9 L Triglycerides 123 Discharge Plan Patient/Caregiver Discharge Instructions Activity: increase activity as tolerated Diet: Cardiac Activity Restrictions/Additional Instructions: Referral to see cardiology in 5 to 14 days for heart failure Prescriptions: New metoprolol succinate 25 mg Tablet Extended Release 24 Hr 50 mg PO DAILY Qty: 30 RF: 0 aspirin 81 mg tablet,chewable 81 mg PO QDAY Qty: 30 RF: 0 atorvastatin [Lipitor] 10 mg tablet 10 mg PO QHS Qty: 30 RF: 0 lisinopril 5 mg tablet 5 mg PO QDAY Qty: 30 RF: 0 furosemide [Lasix] 20 mg tablet 20 mg PO QDAY Qty: 30 RF: 0 Follow Up Plan Follow up with: Evin Camejo MD [Primary Care Provider] - Patient Disposition: Home Health Service Rehab Potential: Undetermined Overall status at discharge: patient is progressing back to baseline Discharge Orders: Discharge Order (Routine); Ordered 09/08/20 Ordered By: Mau Pearsoncarl [facility] VTE Deep Vein Thrombosis/Pulmonary Embolism Present on Admission: No
[2020-09-07] MEDS ORDERED: ATORVASTATIN 10 MG TABLET PO SCH (21:00)
[2020-09-07] MEDS ORDERED: MELATONIN 3 MG TABLET PO SCH (21:00)
[2020-09-07] MEDS: SENNOSIDES/DOCUSATE SODIUM 1 TAB TABLET PO SCH (21:11)
[2020-09-08] MEDS: 0.9 % SODIUM CHLORIDE 10 ML SYRINGE IV SCH (05:24)
[2020-09-08 07:22] LABS: Blood Urea Nitrogen 34 mg/dL (8-23); Carbon Dioxide 23 mmol/L (22-30); Chloride 102 mmol/L (96-108); Glomerular Filtration Rate 25; Glucose 151 mg/dL (70-105)
[2020-09-08 07:24] LABS: ALT/SGPT 9 U/L (<40); AST/SGOT 12 U/L (<40); Albumin 3.4 gm/dL (3.2-5.2); Alkaline Phosphatase 51 U/L (39-117); Bilirubin,Direct < 0.2 mg/dL (<0.3); Bilirubin,Total 0.6 mg/dL (0.1-1.0); Blood Urea Nitrogen 31 mg/dL (8-23); Calcium 9.1 mg/dL (8.6-10.4); Carbon Dioxide 22 mmol/L (22-30); Chloride 102 mmol/L (96-108); Globulin 3.3 gm/dL (2.2-3.7); Glomerular Filtration Rate 28; Glucose 156 mg/dL (70-105); Lactate Dehydrogenase 160 U/L (135-225); Phosphorous 3.4 mg/dL (2.5-4.5); Triglycerides 161 mg/dL (<150); Uric Acid 7.5 mg/dL (2.5-8.0)
[2020-09-08] MEDS: HEPARIN 5,000 UNIT/ML VIAL SQ SCH (08:39)
[2020-09-08] MEDS: DOCUSATE SODIUM 100 MG CAPSULE PO SCH (08:39)
[2020-09-08] MEDS: METOPROLOL SUCCINATE 25 MG TAB.XL.24H PO SCH (08:39)
[2020-09-08] MEDS: MULTIVIT,THER IRON,CA,FA & MIN 1 TABLET PO SCH (08:39)
[2020-09-08] MEDS: NICOTINE 21 MG PATCH TOPICAL SCH (10:49)
== END 2020-09-08 13:10 | disposition home health service (06) | DRG 291 ==
LOC: ED 13:51 → ICU 18:38
PROVIDERS: ADMIT Internal Medicine; ATTEND Internal Medicine

== ENCOUNTER 2024-02-26 15:32 | Inpatient (IN) ==
[2024-02-26 16:53] LABS: Thyroid Stimulating Hormone 1.56 uIU/mL (0.27-5.01)
[2024-02-26 17:21] LABS: Appearance,Urine Clear (Clear); Bacteria,Urine 0 /hpf (0); Bilirubin,Urine Negative (Negative); Color,Urine Yellow; Culture Indicated,Urine No; Glucose,Urine (UA) Negative (Negative); Ketones,Urine Negative (Negative); Leukocyte Esterase,Urine Negative /uL (Negative); Nitrate,Urine Negative (Negative); PH,Urine 5.5 (5.0-9.0); Protein,Urine Negative (Negative); Specific Gravity,Urine <= 1.005 (1.000-1.035); Urine Blood Large ery/mcL (Negative); Urine RBC > 182 /hpf (0-1); Urine Squamous Epithelial Cell 0 /hpf (0-4); Urine WBC 2 /hpf (0-4); Urobilinogen,Urine Normal
[2024-02-26] MEDS: FUROSEMIDE 40 MG/4 ML VIAL IV ONE (18:43)
[2024-02-26] MEDS: FUROSEMIDE 100 MG/10 ML VIAL IV ONE ×2 (20:55)
[2024-02-26] MEDS ORDERED: ACETAMINOPHEN 325 MG TABLET PO PRN (21:58)
[2024-02-26] MEDS ORDERED: SENNOSIDES 1 TABLET PO PRN (21:58)
[2024-02-26] MEDS ORDERED: DEXTROSE 50% 50 ML VIAL IV PRN (21:58)
[2024-02-26] MEDS ORDERED: LACTULOSE 20 GM/30 ML ORAL.SOL PO PRN (21:58)
[2024-02-26] MEDS ORDERED: DEXTROSE 31 GM ORAL.SUSP PO PRN (21:58)
[2024-02-26] MEDS ORDERED: ONDANSETRON 4 MG/2 ML VIAL IV PRN (21:58)
[2024-02-26] MEDS: DOCUSATE SODIUM 100 MG CAPSULE PO SCH (22:35)
[2024-02-26] MEDS: TAMSULOSIN 0.4 MG CAPSULE PO SCH (22:36)
[2024-02-26] MEDS: APIXABAN 2.5 MG TABLET PO SCH (22:36)
[2024-02-26] MEDS: METOPROLOL TARTRATE 50 MG TABLET PO SCH (22:36)
[2024-02-26] MEDS: 0.9 % SODIUM CHLORIDE 10 ML SYRINGE IV SCH (22:37)
[2024-02-26] MEDS: INSULIN LISPRO 1 UNIT/0.01 ML UNIT SQ SCH (22:45)
[2024-02-27 05:46] LABS: Basophils # (Auto) 0.06 K/mcL (0.00-0.30); Basophils % (Auto) 0.8 % (0.0-2.0); Eosinophils # (Auto) 0.43 K/mcL (0.00-0.70); Eosinophils % (Auto) 5.7 % (0.0-7.0); Hematocrit 24.7 % (40.1-51.0); Hemoglobin 8.2 g/dL (13.7-17.5); Lymphocytes # (Auto) 0.53 K/mcL (1.50-4.80); Mean Cell Volume 89.8 fL (80.0-100.0); Mean Corpuscular HGB Conc 33.2 g/dL (31.0-36.0); Mean Platelet Volume 8.6 fL (8.8-12.5); Monocytes # (Auto) 0.93 K/mcL (0.10-0.90); Monocytes % (Auto) 12.4 % (1.0-12.0); Neutrophils % (Auto) 73.8 % (38.0-78.0); Platelet Count 254 K/mcL (140-440); RBC 2.75 M/mcL (4.63-6.08); Red Cell Distribution Width 14.1 % (11.5-14.5); WBC 7.5 K/mcL (4.5-11.0)
[2024-02-27 06:29] LABS: ALT/SGPT < 5 U/L (<40); AST/SGOT 13 U/L (<40); Albumin 3.6 gm/dL (3.2-5.2); Albumin/Globulin Ratio 1.1 (1.0-2.3); Alkaline Phosphatase 39 U/L (39-117); Bilirubin,Direct < 0.2 mg/dL (0-0.3); Bilirubin,Total 0.5 mg/dL (0.1-1.0); Blood Urea Nitrogen 105 mg/dL (8-23); Calcium 8.8 mg/dL (8.6-10.4); Carbon Dioxide 15 mmol/L (22-30); Chloride 99 mmol/L (96-108); Globulin 3.3 gm/dL (2.2-3.7); Glomerular Filtration Rate 14; Glucose 98 mg/dL (70-105); Lactate Dehydrogenase 134 U/L (135-225); Phosphorous 5.6 mg/dL (2.5-4.5); Triglycerides 75 mg/dL (<150); Uric Acid 8.4 mg/dL (2.5-8.0)
[2024-02-27] MEDS: FUROSEMIDE 100 MG/10 ML VIAL IV SCH (08:43)
[2024-02-27] MEDS: LACTULOSE 20 GM/30 ML ORAL.SOL PO SCH (10:29)
[2024-02-27] MEDS: SENNOSIDES 1 TABLET PO SCH (10:29)
[2024-02-27] MEDS: FUROSEMIDE 80 MG TABLET PO SCH (15:10)
[2024-02-27] MEDS: hydrALAZINE 25 MG TABLET PO SCH (15:10)
[2024-02-27] MEDS: ISOSORBIDE DINITRATE 10 MG TABLET PO SCH (15:10)
[2024-02-27] MEDS: DARBEPOETIN ALFA 60 MCG/ML VIAL SQ ONE (15:11)
[2024-02-27 16:54] LABS: Blood Urea Nitrogen 109 mg/dL (8-23); Carbon Dioxide 15 mmol/L (22-30); Chloride 98 mmol/L (96-108); Glomerular Filtration Rate 13; Glucose 156 mg/dL (70-105)
[2024-02-27] MEDS: BISACODYL 10 MG SUPP.RECT PR PRN (21:51)
[2024-02-28 06:27] LABS: Basophils # (Auto) 0.03 K/mcL (0.00-0.30); Basophils % (Auto) 0.3 % (0.0-2.0); Eosinophils % (Auto) 4.1 % (0.0-7.0); Hematocrit 26.7 % (40.1-51.0); Lymphocytes # (Auto) 0.58 K/mcL (1.50-4.80); Mean Cell Volume 89.9 fL (80.0-100.0); Mean Corpuscular HGB Conc 33.7 g/dL (31.0-36.0); Mean Platelet Volume 8.8 fL (8.8-12.5); Monocytes # (Auto) 1.21 K/mcL (0.10-0.90); Monocytes % (Auto) 12.4 % (1.0-12.0); Platelet Count 299 K/mcL (140-440); RBC 2.97 M/mcL (4.63-6.08); Red Cell Distribution Width 14.2 % (11.5-14.5); WBC 9.7 K/mcL (4.5-11.0)
[2024-02-28 06:48] LABS: ALT/SGPT < 5 U/L (<40); AST/SGOT 12 U/L (<40); Albumin 3.7 gm/dL (3.2-5.2); Albumin/Globulin Ratio 1.1 (1.0-2.3); Alkaline Phosphatase 41 U/L (39-117); Bilirubin,Direct < 0.2 mg/dL (0-0.3); Bilirubin,Total 0.3 mg/dL (0.1-1.0); Blood Urea Nitrogen 109 mg/dL (8-23); Calcium 9.1 mg/dL (8.6-10.4); Carbon Dioxide 14 mmol/L (22-30); Chloride 100 mmol/L (96-108); Globulin 3.5 gm/dL (2.2-3.7); Glomerular Filtration Rate 13; Glucose 117 mg/dL (70-105); Lactate Dehydrogenase 151 U/L (135-225); Phosphorous 5.7 mg/dL (2.5-4.5); Triglycerides 77 mg/dL (<150); Uric Acid 9.4 mg/dL (2.5-8.0)
[2024-02-28 07:00] LABS: Retic Absolute 0.06 M/mcL (0.03-0.11)
[2024-02-28 07:11] LABS: Iron 26 ug/dL (61-157)
[2024-02-28 07:20] LABS: Ferritin 417.6 ng/mL (30.0-400.0)
[2024-02-28] MEDS: GABAPENTIN 100 MG CAPSULE PO SCH (20:09)
[2024-02-29] MEDS: FLEETS ADULT 1 DOSE ENEMA PR SCH (10:20)
== END 2024-02-29 12:50 | disposition hospice, inpatient (51) | DRG 281 ==
LOC: ED 15:32 → ICU 21:24
PROVIDERS: ADMIT Internal Medicine; ATTEND Internal Medicine